=== PATIENT | female | born 1975 | race Hispanic/Latino ===

== ENCOUNTER 2024-08-03 09:34 | Observation (INO) | payer SELFPAY ==
[2024-08-03] VITALS (15 sets, daily range): BP systolic 112–151; BP diastolic 62–87
[~2024-08-03] VITALS: Ht 157.5 cm; Wt 74.6 kg
[2024-08-03] MEDS ORDERED: Barium Sulfate (Readi-Cat 2 Berry) 450 ML/BTL PO ONE (09:50)
[2024-08-03] MEDS ORDERED: Barium Sulfate (Readi-Cat 2 Banana) 450 ML/BTL PO ONE (09:50)
[2024-08-03] MEDS ORDERED: ONDANSETRON HCl 4 MG/2 ML SDV IV ONE ×2 (09:50→15:41)
[2024-08-03] MEDS ORDERED: KETOROLAC TROMETHAMINE 15 MG/ML SDV IV ONE (09:50)
[2024-08-03] MEDS ORDERED: DIATRIZOATE MEGLUMINE & SODIUM 30 ML/BTL PO ONE (09:50)
[2024-08-03] MEDS ORDERED: SODIUM CHLORIDE 0.9% 1,000 ML IV ONE (09:50)
[2024-08-03 10:01] LABS: URINE BLOOD DIPSTICK Large (NEGATIVE); URINE GLUCOSE - DIPSTICK Negative (NEGATIVE); URINE KETONE Negative (NEGATIVE); URINE PROTEIN - DIPSTICK >=300 mg/dL (NEG-TRACE); URINE SPECIFIC GRAVITY 1.025
[2024-08-03 10:02] LABS: URINE COLOR Yellow; URINE LEUK ESTERASE Large (NEGATIVE); URINE NITRITE - DIPSTICK Positive (Negative)
[2024-08-03 10:03] LABS: URINE BACTERIA MANY hpf; URINE EPITHELIAL CELLS MODERATE EPI/hpf (0-FEW); URINE RBC 50-100 RBC/hpf (0-5); URINE WBC >100 WBC/hpf (0-5)
[2024-08-03] MEDS ORDERED: cefTRIAXone SODIUM 2 GM in SODIUM CHLORIDE 0.9% 100 ML IV ONE (10:10)
[2024-08-03 10:13] LABS: ALBUMIN 4.5 g/dL (3.2-5.0); BILIRUBIN, TOTAL 1.6 mg/dL (0.02-1.3); CREATININE 0.6 mg/dL (0.5-1.0); POTASSIUM 3.7 mmol/l (3.5-5.1); TOTAL PROTEIN 8.1 g/dL (6.3-8.2)
[2024-08-03 10:14] LABS: BASO% 0.5 % (0-3); EOS% 0.4 % (0-8); HEMOGLOBIN 13.7 g/dl (12.0-16.0); IMMATURE GRANULOCYTES 0.2 % (0.0-5.0); LYMPH% 15.2 % (15-41); MEAN CELL VOLUME 89.4 fL CALC (80.0-100.0); MEAN CORPUSCULAR HGB 28.5 pG CALC (26.0-32.0); MEAN CORPUSCULAR HGB CONC 31.9 g/dL CAL (32.0-36.0); MONO% 6.2 % (2-13); NEUT# 10.96 thou/uL (2.00-7.15); NEUT% 77.5 % (42-76); RED BLOOD COUNT 4.81 mill/uL (4.20-5.60); RED CELL DISTRI WIDTH 16.3 % (11.5-15.5)
--- NOTE | 2024-08-03 14:31 | NUR ---
REPORT RECEIVED FROM DENVER CANAS
--- NOTE | 2024-08-03 14:46 | NUR ---
PT ARRIVED TO MED/SURG ROOM 267 IN STABLE CONDITION VIA WC ACCOMPANIED BY FLORESITARN;PT UGANDAN SPEAKING ONLY- TRANSLATION PROVIDED BY LIZY;PT A&O X3, ORIENTED TO ROOM AND CALL LIGHT SYSTEM;PT REPORTS RIGHT SIDED FLANK PAIN AND HEMATURIA X1 DAY LEAD MASSAGE THERAPIST;WT AND VS OBTAINED BY ALTA JAQUEZ.ASSESSMENT COMPLETED;PT DENIES ANY CURRENT PAIN OR DISCOMFORTS, PAIN SCALE AND REPORTING EDUCATED;RESPIRATIONS EVEN AND UNLABORED ON RA, CLEAR LUNG SOUNDS;ABDOMEN SOFT ON PALPATION AND ACTIVE IN ALL 4 QUADRANTS, LAST BM 08/03/24. TENDERNESS NOTED TO RIGHT FLANK;STRONG PEDAL PULSES;SKIN INTACT;TELE MONITORING #[address];#20G TO LAC FLUSHED AND PATENT,NS TO BE STARTED AT 100ML/HR PER ORDER. ALLERGY BAND APPLIED TO LEFT ARM. NPO DIET STATUS EDUCATED;PT DENIES ANY ADDITIONAL NEEDS AND IS ENCOURAGED TO CALL FOR ASSISTANCE IF NEEDED;BED IN THE LOWEST POSITION WITH CALL LIGHT IN REACH;FREQUENT ROUNDS MADE.
[2024-08-03] MEDS ORDERED: ACETAMINOPHEN 325 MG/TAB PO PRN (15:10)
[2024-08-03] MEDS ORDERED: SODIUM CHLORIDE 0.9% 1,000 ML IV PRN (15:10)
[2024-08-03] MEDS ORDERED: MAGNESIUM HYDROXIDE 30 ML UDC PO PRN (15:10)
[2024-08-03] MEDS ORDERED: LIDOCAINE HCL 2% 2ML SDV IV ONE (15:41)
[2024-08-03] MEDS ORDERED: DiphenhydrAMINE HCL 50 MG/ML SDV IV ONE (15:41)
[2024-08-03] MEDS ORDERED: PROPOFOL 200 MG/20 ML VIAL IV ONE (15:41)
[2024-08-03] MEDS ORDERED: ROCURONIUM BROMIDE 10 MG/ML 5ML VIAL IV ONE (15:41)
[2024-08-03] MEDS ORDERED: SODIUM CHLORIDE 0.9% 1,000 ML BAG IV ONE (15:41)
[2024-08-03] MEDS ORDERED: SUGAMMADEX SODIUM 200 MG/2 ML SDV IV ONE (15:41)
[2024-08-03] MEDS ORDERED: FUROSEMIDE 40 MG/4 ML SDV IV ONE (15:41)
[2024-08-03] MEDS ORDERED: SUCCINYLCHOLINE CHLORIDE 20 MG/ML 10ML VIAL IV ONE (15:41)
--- NOTE | 2024-08-03 15:50 | NUR ---
PT TRANSPORTED TO OR IN STABLE CONDITION VIA STRETCHER ACCOMPANIED BY OR STAFF MEMBER
[2024-08-03] MEDS ORDERED: ISOVUE-300 (Iopamidol) 100 ML SDV IV ONE (16:40)
[2024-08-03] MEDS ORDERED: FAMOTIDINE 10MG/ML 2ML SDV IV ONE (16:46)
[2024-08-03] MEDS ORDERED: SODIUM CHLORIDE 1,000 ML BTL IR ONE (16:53)
[2024-08-03] MEDS ORDERED: Levofloxacin 500 mg Premix 100 ML IV ONE (17:43)
[2024-08-03] MEDS ORDERED: SODIUM CHLORIDE 0.9% 2,000 ML IV ONE (18:55)
--- NOTE | 2024-08-03 19:45 | NUR ---
PATIENT CAME IN FROM OR VIA STRECHER AT 1935. FAMILY AT BEDSIDE. BEDSIDE ASSESSMENT COMPLETE. A&O X3. CLEAR LUNG SOUNDS. UNLABORED RESP, NO VISUAL SIGNS OF DISTRESS. PATIENT IS BULGARIAN SPEAKING. NORMAL S1 AND S2. BOWEL SOUNDS PRESENT. PERIPHERAL PULSES STRONG AND EQUAL. SAFTY PRECAUTIONS IN PLACE. BED AT LOWEST POSITION. CALL LIGHT WITH IN REACH.
[2024-08-03] MEDS ORDERED: ENOXAPARIN SODIUM 40 MG/0.4 ML SYR SC SCH (21:00)
[2024-08-03] MEDS ORDERED: HYDROmorphone HCL 2 MG/AMP IV PRN (21:25)
[2024-08-03] MEDS ORDERED: oxyCODONE 5MG/ ACETAMINOPHEN 325MG TAB PO PRN (21:25)
--- NOTE | 2024-08-04 00:26 | NUR ---
PATIENT OBSERVED TO BE RESTING IN BED WITH EYES CLOSED. UNLABORED RESP. NO VISUAL SIGNS OF DISTRESS. BED AT LOWEST POSITION. CALL LIGHT WITH IN REACH.
[2024-08-04 04:19] VITALS: BP 112/63
--- NOTE | 2024-08-04 04:25 | NUR ---
PATIENT OBSERVED IN ROOM RESTING IN BED AWAKE. EQUAL UNLABORED RESP. NO VISUAL SIGNS OF DISTRESS. NO COMPLAINTS OF PAIN AT THIS TIME. BED AT LOWEST POSITION. CALL LIGHT WITH IN REACH.
[2024-08-04 06:41] VITALS: BP 106/60
--- NOTE | 2024-08-04 07:50 | NUR ---
PT IS FOUND RESTING COMFORTABLY IN BED. PT IS A&O X4; PT SHOWS NO SIGNS OF DISTRESS. PT CAN MAKE HER NEEDS KNOWN; KYRGYZ SPEAKING. PLAN OF CARE WAS REVIEWED WITH THE PATIENT. PT STATES NO FURTHER QUESTIONS AT THIS TIME. ALL NATIONAL PATIENT SAFETY PRECAUTIONS IN PLACE.
[2024-08-04 08:33] LABS: BASO% 0.2 % (0-3); HEMATOCRIT 39.8 % (37.0-47.0); HEMOGLOBIN 12.5 g/dl (12.0-16.0); IMMATURE GRANULOCYTES 0.2 % (0.0-5.0); LYMPH% 12.7 % (15-41); MEAN CORPUSCULAR HGB 28.3 pG CALC (26.0-32.0); MEAN CORPUSCULAR HGB CONC 31.4 g/dL CAL (32.0-36.0); MONO% 2.3 % (2-13); NEUT# 9.12 thou/uL (2.00-7.15); NEUT% 84.6 % (42-76); RED BLOOD COUNT 4.42 mill/uL (4.20-5.60); RED CELL DISTRI WIDTH 16.2 % (11.5-15.5)
[2024-08-04 08:51] LABS: ALBUMIN 3.6 g/dL (3.2-5.0); BILIRUBIN, TOTAL 1.3 mg/dL (0.02-1.3); CREATININE 0.5 mg/dL (0.5-1.0); POTASSIUM 4.2 mmol/l (3.5-5.1); TOTAL PROTEIN 6.7 g/dL (6.3-8.2)
[2024-08-04] MEDS ORDERED: BACTRIM DS1 TAB PO (09:44)
[2024-08-04 10:50] VITALS: BP 115/59
--- NOTE | 2024-08-04 12:18 | NUR ---
PT'S CONDITION REMAINS THE SAME; ALL NATIONAL PATIENT SAFETY PRECAUTIONS ARE IN PLACE.
== END 2024-08-04 13:00 | disposition home or self-care (01) | DRG 988 ==
LOC: ED 09:34 → ED-I 12:00 → ED 13:26 → MS2 13:27
PROVIDERS: Family Medicine; Nurse Practitioner Family; ADMIT Internal Medicine; ATTEND Internal Medicine
PROC: 0T768DZ Dilation of Right Ureter with Intraluminal Device, Via Natural or Artificial Opening Endoscopic (ICD-10-PCS; principal; 2024-08-03)
PROC: BT1DZZZ Fluoroscopy of Right Kidney, Ureter and Bladder (ICD-10-PCS; 2024-08-03)
DX: N85.8 Other specified noninflammatory disorders of uterus (principal); N13.39 Other hydronephrosis; N39.0 Urinary tract infection, site not specified; B96.20 Unspecified Escherichia coli [E. coli] as the cause of diseases classified elsewhere; R31.0 Gross hematuria; E11.9 Type 2 diabetes mellitus without complications; E78.00 Pure hypercholesterolemia, unspecified
CPT/HCPCS: C1769; G0378; J0696; J1100; J1200; J1650; J1885; J1940; J1956; J2405; Q9966; Q9967